=== PATIENT | male | born 1940 | race African-American/Black ===

== ENCOUNTER 2016-06-19 12:00 | Outpatient (CLI) | payer MEDICARE, BC ==
[2016-06-19 13:22] LABS: #Basophils 0.1 thou/uL (0.0-0.2); #Eosinphils 0.1 thou/uL (0.0-0.7); #Monocytes 0.3 thou/uL (0.11-0.59); #Neutrophils 4.4 thou/uL (1.40-6.50); %Basophils 0.9 % (0.0-1.0); %Monocytes 5.8 % (0.0-10.0); Hematocrit 34.3 % (42.0-52.0); Mean Platelet Volume 8.1 fL (7.4-10.4); White Blood Cell (WBC) Count 5.8 thou/uL (4.8-10.8)
[2016-06-19 13:40] LABS: Prothrombin Time 23.8 SEC (12.0-14.7)
[2016-06-19 13:44] LABS: ALT (SGPT) 25 U/L (0-55); AST (SGOT) 20 U/L (5-34); Alkaline Phosphatase 86 U/L (40-150); Anion Gap 13 mmol/L (10-20); BUN (Urea Nitrogen) 59 mg/dL (8.4-25.7); Bilirubin, Total 0.5 mg/dL (0.2-1.2); Calc. Creatinine Clearance 0 mL/min (70-130); Carbon Dioxide 19 mmol/L (23-31); Chloride 113 mmol/L (98-107); Estimated GFR-MDRD 15; Magnesium 1.8 mg/dL (1.6-2.6); Protein, Total 7.6 g/dL (5.8-8.1)
[2016-06-19 18:31] LABS: Microalbumin Urine Greater than 200.0 mg/dL (0.5-50.0)
== END 2016-06-19 12:01 ==
LOC: HPCALD 12:00
PROVIDERS: ATTEND Family Medicine
DX: E03.9 Hypothyroidism, unspecified (principal); N18.4 Chronic kidney disease, stage 4 (severe); E11.65 Type 2 diabetes mellitus with hyperglycemia; I48.2 Chronic atrial fibrillation
CPT/HCPCS: 36415; 80053; 82043; 82306; 83735; 83970; 84100; 84443; 85025; 85610

== ENCOUNTER 2016-08-21 11:41 | Outpatient (CLI) | payer MEDICARE, BC ==
[2016-08-21 12:10] LABS: Hemoglobin 10.7 g/dL (14.0-18.0)
[2016-08-21 12:33] LABS: Anion Gap 15 mmol/L (10-20); BUN (Urea Nitrogen) 51 mg/dL (8.4-25.7); Calc. Creatinine Clearance 0 mL/min (70-130); Carbon Dioxide 18 mmol/L (23-31); Chloride 113 mmol/L (98-107); Estimated GFR-MDRD 15; Glucose 147 mg/dL (83-110); Potassium 5.4 mmol/L (3.5-5.1); Sodium 141 mmol/L (136-145)
[2016-08-21 17:55] LABS: Iron 65 ug/dL (65-175)
== END 2016-08-21 11:42 | disposition home or self-care (01) ==
LOC: BURLAB 11:41
PROVIDERS: ATTEND Internal Medicine Nephrology
DX: I12.9 Hypertensive chronic kidney disease with stage 1 through stage 4 chronic kidney disease, or unspecified chronic kidney disease (principal); N18.4 Chronic kidney disease, stage 4 (severe); E55.9 Vitamin D deficiency, unspecified; R80.9 Proteinuria, unspecified
CPT/HCPCS: 36415; 80048; 82728; 83540; 83970; 85014; 85018

== ENCOUNTER 2016-10-23 12:34 | Outpatient (CLI) | payer MEDICARE, BC ==
[2016-10-23 13:15] LABS: Anion Gap 16 mmol/L (10-20); BUN (Urea Nitrogen) 64 mg/dL (8.4-25.7); Calc. Creatinine Clearance 0 mL/min (70-130); Calcium 8.8 mg/dL (7.8-10.44); Carbon Dioxide 16 mmol/L (23-31); Chloride 114 mmol/L (98-107); Estimated GFR-MDRD 13; Glucose 93 mg/dL (83-110); Potassium 5.1 mmol/L (3.5-5.1); Sodium 141 mmol/L (136-145)
== END 2016-10-23 12:35 | disposition home or self-care (01) ==
LOC: BURLAB 12:34
PROVIDERS: ATTEND Internal Medicine Nephrology
DX: I12.9 Hypertensive chronic kidney disease with stage 1 through stage 4 chronic kidney disease, or unspecified chronic kidney disease (principal); N18.4 Chronic kidney disease, stage 4 (severe); R80.9 Proteinuria, unspecified
CPT/HCPCS: 36415; 80048; 83970

== ENCOUNTER 2016-12-04 15:35 | Outpatient (CLI) | payer MEDICARE, BC ==
[2016-12-04 16:03] LABS: INR-International Normal Ratio 1.7; Prothrombin Time 20.7 SEC (12.0-14.7)
[2016-12-04 16:06] LABS: Anion Gap 15 mmol/L (10-20); BUN (Urea Nitrogen) 75 mg/dL (8.4-25.7); Calc. Creatinine Clearance 0 mL/min (70-130); Calcium 8.5 mg/dL (7.8-10.44); Carbon Dioxide 18 mmol/L (23-31); Chloride 114 mmol/L (98-107); Estimated GFR-MDRD 10; Glucose 129 mg/dL (83-110); Potassium 5.3 mmol/L (3.5-5.1); Sodium 142 mmol/L (136-145)
== END 2016-12-04 15:36 | disposition home or self-care (01) ==
LOC: HPCALD 15:35
PROVIDERS: ATTEND Family Medicine
DX: I48.2 Chronic atrial fibrillation (principal); N18.4 Chronic kidney disease, stage 4 (severe)
CPT/HCPCS: 36415; 80048; 85610

== ENCOUNTER 2017-01-03 11:37 | Outpatient (CLI) | payer MEDICARE, BC ==
[2017-01-03 12:23] LABS: Hemoglobin 9.6 g/dL (14.0-18.0)
[2017-01-03 12:42] LABS: Anion Gap 13 mmol/L (10-20); BUN (Urea Nitrogen) 60 mg/dL (8.4-25.7); Calc. Creatinine Clearance 0 mL/min (70-130); Calcium 9.1 mg/dL (7.8-10.44); Carbon Dioxide 21 mmol/L (23-31); Chloride 113 mmol/L (98-107); Estimated GFR-MDRD 11; Glucose 152 mg/dL (83-110); Sodium 142 mmol/L (136-145)
== END 2017-01-03 11:38 | disposition home or self-care (01) ==
LOC: BURLAB 11:37
PROVIDERS: ATTEND Internal Medicine Nephrology
DX: N18.4 Chronic kidney disease, stage 4 (severe) (principal); R53.82 Chronic fatigue, unspecified
CPT/HCPCS: 36415; 80048; 85014; 85018

== ENCOUNTER 2017-05-15 13:23 | Emergency (ER) | payer MEDICARE, BC | END 2017-05-15 14:11 | disposition home or self-care (01) | LOC: BURERS 13:23 | DX: T15.11XA Foreign body in conjunctival sac, right eye, initial encounter (principal); I48.91 Unspecified atrial fibrillation; E11.9 Type 2 diabetes mellitus without complications; I10 Essential (primary) hypertension | CPT/HCPCS: 99283 ==

== ENCOUNTER 2018-02-08 19:18 | Emergency (ER) | payer MEDICARE, BC | END 2018-02-08 19:50 | disposition home or self-care (01) | LOC: BURERS 19:18 | DX: T82.838A Hemorrhage due to vascular prosthetic devices, implants and grafts, initial encounter (principal); I48.91 Unspecified atrial fibrillation; E11.9 Type 2 diabetes mellitus without complications; I10 Essential (primary) hypertension; Z79.82 Long term (current) use of aspirin; Z79.01 Long term (current) use of anticoagulants; Z79.899 Other long term (current) drug therapy; Z79.4 Long term (current) use of insulin | CPT/HCPCS: 99283 ==

== ENCOUNTER 2018-08-02 14:44 | Outpatient (CLI) | payer MEDICARE, BC ==
--- NOTE | 2018-08-02 17:55 | RAD ---
ABDOMEN 1 VIEW: Date: 08/02/18 The gas pattern is normal with no sign of obstruction. There is a questionable calcification over the upper pole of the left kidney. I cannot exclude renal calculi here. There are several rounded calcif ications in the pelvis that appear to be phleboliths. Arterial calcifications are seen throughout the pelvic region. Bony structures show no acute change. IMPRESSION: Possible faint left upper quadrant calcification. I cannot exclude left renal calculi. POS: HOME
== END 2018-08-02 14:45 | disposition home or self-care (01) ==
LOC: BURRAD 14:44
PROVIDERS: ATTEND Family Medicine
DX: R31.29 Other microscopic hematuria (principal)
CPT/HCPCS: 74018

== ENCOUNTER 2018-08-08 13:40 | Emergency (ER) | payer MEDICARE, BC ==
[2018-08-08 14:41] LABS: #Eosinphils 0.1 thou/uL (0.0-0.7); #Lymphocytes 0.8 thou/uL (1.20-3.40); #Monocytes 0.5 thou/uL (0.11-0.59); #Neutrophils 4.7 thou/uL (1.40-6.50); %Basophils 0.8 % (0.0-1.0); %Eosinophils 1.3 % (0.0-10.0); %Monocytes 7.6 % (0.0-10.0); %Neutrophils 77.3 % (42.0-75.0); Hemoglobin 9.7 g/dL (14.0-18.0); Mean Corpuscular HGB CONC 30.3 g/dL (32.0-36.0); Mean Corpuscular Volume 85.7 fL (78.0-98.0); Mean Platelet Volume 6.5 fL (7.4-10.4); Platelet Count 185 thou/uL (130-400); RBC Distribution Width 17.6 % (11.5-14.5); Red Blood Cell (RBC) Count 3.73 mill/uL (4.70-6.10); White Blood Cell (WBC) Count 6.1 thou/uL (4.8-10.8)
[2018-08-08 14:46] LABS: Anion Gap 20 mmol/L (10-20); BUN (Urea Nitrogen) 43 mg/dL (8.4-25.7); Calc. Creatinine Clearance 0 mL/min (70-130); Calcium 9.5 mg/dL (7.8-10.44); Carbon Dioxide 29 mmol/L (23-31); Chloride 93 mmol/L (98-107); Estimated GFR-MDRD 7; Glucose 214 mg/dL (83-110); Potassium 4.3 mmol/L (3.5-5.1); Sodium 138 mmol/L (136-145)
[2018-08-08 15:45] LABS: INR-International Normal Ratio 3.7; Prothrombin Time 36.6 SEC (12.0-14.7)
[2018-08-08 15:46] LABS: PTT 70.5 SEC (22.9-36.1)
== END 2018-08-08 17:16 | disposition short-term general hospital (02) ==
LOC: BURERS 13:40
DX: M54.5 Low back pain (principal); M62.81 Muscle weakness (generalized); I48.91 Unspecified atrial fibrillation; I10 Essential (primary) hypertension; E11.9 Type 2 diabetes mellitus without complications
CPT/HCPCS: 80048; 85025; 85610; 85652; 85730; 99284

== ENCOUNTER 2018-08-28 10:53 | Outpatient (CLI) | payer MEDICARE, BC ==
--- NOTE | 2018-08-28 13:19 | CT ---
CT ABDOMEN AND PELVIS WITHOUT CONTRAST: 08/28/2018 HISTORY/TECHNIQUE: A spiral CT of the abdomen and pelvis was done for evaluation of microscopic hematuria. Axial slices were acquired, followed by coronal reconstructions. FINDINGS: ABDOMEN: The lung bases are clear, except for minor scarring. The liver, spleen, pancreas, adrenal glands, kidneys, and abdominal aorta show no acute findings within the limitations of a noncontrast s tudy. The gallbladder is contracted and probably has gallstones in it. The kidneys show some vascul ar calcifications, but no renal stones or gross mass is seen. There are small amounts of perinephric stranding around each kidney, left more than right. This is probably longstanding. The bowel is nondistended and shows no sign of wall thickening or other inflammatory changes. There is no free air or free fluid. PELVIS: CT of the pelvis shows no pelvic masses, fluid collections, or inflammatory changes. While unopacified, there are no abnormalities associated with the urinary bladder. Degenerative changes ar e prominent in the lower lumbar spine, with an osteophyte narrowing the right lateral recess at L5-S1 , a mild degree of spinal stenosis at L4-L5, and a moderate degree at L3-L4. IMPRESSION: No findings to explain the patient's microscopic hematuria. POS: HOME
== END 2018-08-28 10:54 | disposition home or self-care (01) ==
LOC: BURCT 10:53
PROVIDERS: ATTEND Family Medicine
DX: R31.29 Other microscopic hematuria (principal)
CPT/HCPCS: 74176

== ENCOUNTER 2018-09-12 12:10 | Emergency (ER) | payer MEDICARE, BC ==
[2018-09-12 13:13] LABS: #Lymphocytes 0.7 thou/uL (1.20-3.40); #Monocytes 0.4 thou/uL (0.11-0.59); #Neutrophils 3.8 thou/uL (1.40-6.50); %Basophils 0.9 % (0.0-1.0); %Eosinophils 0.8 % (0.0-10.0); %Lymphocytes 13.5 % (21.0-51.0); %Monocytes 8.9 % (0.0-10.0); %Neutrophils 75.9 % (42.0-75.0); Hemoglobin 8.4 g/dL (14.0-18.0); Mean Corpuscular HGB CONC 29.1 g/dL (32.0-36.0); Mean Corpuscular Hemoglobin 25.8 pg (27.0-31.0); Mean Corpuscular Volume 88.8 fL (78.0-98.0); Mean Platelet Volume 6.2 fL (7.4-10.4); Platelet Count 163 thou/uL (130-400); RBC Distribution Width 19.4 % (11.5-14.5); Red Blood Cell (RBC) Count 3.24 mill/uL (4.70-6.10)
[2018-09-12 13:26] LABS: INR-International Normal Ratio 1.8; PTT 60.9 SEC (22.9-36.1); Prothrombin Time 21.3 SEC (12.0-14.7)
[2018-09-12 13:30] LABS: ALT (SGPT) 10 U/L (8-55); AST (SGOT) 12 U/L (5-34); Albumin 4.1 g/dL (3.4-4.8); Alkaline Phosphatase 111 U/L (40-150); Anion Gap 18 mmol/L (10-20); BUN (Urea Nitrogen) 36 mg/dL (8.4-25.7); Bilirubin, Total 0.5 mg/dL (0.2-1.2); CK (CPK) 425 U/L (30-200); Calc. Creatinine Clearance 0 mL/min (70-130); Calcium 9.7 mg/dL (7.8-10.44); Carbon Dioxide 29 mmol/L (23-31); Chloride 100 mmol/L (98-107); Estimated GFR-MDRD 8; Globulin 3.8 g/dL (2.4-3.5); Glucose 138 mg/dL (83-110); Potassium 4.5 mmol/L (3.5-5.1); Protein, Total 7.9 g/dL (5.8-8.1); Sodium 142 mmol/L (136-145)
[2018-09-12 13:32] LABS: Anisocytosis SLIGHT = 6-15 cells (100X) (0-5/hpf); MDiff Complete? YES
--- NOTE | 2018-09-12 18:22 | RAD ---
RIGHT HIP TWO VIEWS: 09/12/18 No fracture, dislocation, or joint space narrowing was seen. There is marked irregularity and some loss of the right ischial tuberosity on these films. When I com pared back with a 08/28/18 CT of the abdomen and pelvis, I really could not appreciate the finding on t hose images. My presumption is that this is chronic. There is certainly no sign of acute traumatic ch shanice. The pubic ring appears intact and the adjacent symphysis appears normal. Arterial calcification s are seen throughout. IMPRESSION: 1. No acute traumatic changes. 2. Bony irregularity of the right ischial tuberosity. Presumed to be chronic in nature. Correlat e with any clinical symptoms. If the patient is symptomatic in this region, then further studies may be needed. POS: HOME
--- NOTE | 2018-09-12 18:24 | RAD ---
LUMBAR SPINE THREE VIEWS: 09/12/18 No fracture, dislocation, or disc space narrowing was seen. Some degenerative changes are present in the spine, particularly at the L3-L4 level consisting of prominent anterior osteophytes. The SI joint s were symmetrical. Dense calcification of the aorta and iliac arteries is present. IMPRESSION: Mild degenerative changes as noted. POS: HOME
== END 2018-09-12 14:50 | disposition short-term general hospital (02) ==
LOC: BURERS 12:10
DX: G89.29 Other chronic pain (principal); M54.9 Dorsalgia, unspecified; I12.0 Hypertensive chronic kidney disease with stage 5 chronic kidney disease or end stage renal disease; N18.6 End stage renal disease; K92.2 Gastrointestinal hemorrhage, unspecified; M62.81 Muscle weakness (generalized); I48.91 Unspecified atrial fibrillation; E11.9 Type 2 diabetes mellitus without complications; E03.9 Hypothyroidism, unspecified; E78.5 Hyperlipidemia, unspecified; E78.2 Mixed hyperlipidemia; Z99.2 Dependence on renal dialysis; Z79.899 Other long term (current) drug therapy; Z79.01 Long term (current) use of anticoagulants; Z79.82 Long term (current) use of aspirin
CPT/HCPCS: 36415; 72100; 80053; 82274; 82550; 85025; 85610; 85730; 96374

== ENCOUNTER 2019-11-19 14:12 | Emergency (ER) | payer MEDICARE, BC | END 2019-11-19 14:54 | disposition home or self-care (01) | LOC: BURERS 14:12 | DX: E11.52 Type 2 diabetes mellitus with diabetic peripheral angiopathy with gangrene (principal); I96 Gangrene, not elsewhere classified; I48.91 Unspecified atrial fibrillation; I49.9 Cardiac arrhythmia, unspecified; E03.9 Hypothyroidism, unspecified; E78.00 Pure hypercholesterolemia, unspecified; E78.5 Hyperlipidemia, unspecified; I12.0 Hypertensive chronic kidney disease with stage 5 chronic kidney disease or end stage renal disease; E11.22 Type 2 diabetes mellitus with diabetic chronic kidney disease; N18.6 End stage renal disease; Z99.2 Dependence on renal dialysis; Z87.891 Personal history of nicotine dependence; Z79.82 Long term (current) use of aspirin; Z79.4 Long term (current) use of insulin; Z79.01 Long term (current) use of anticoagulants | CPT/HCPCS: 99283 ==